=== PATIENT | female | born 1950 | race Caucasian/White ===

== ENCOUNTER 2020-05-01 05:37 | Outpatient (RCR) | payer MEDICARE ==
[~2020-05-01] VITALS: Ht 172.7 cm; Wt 64.1 kg
[2020-05-01] MEDS ORDERED: LOSA50TA63 PO (15:29)
== END 2020-05-01 15:31 | disposition home or self-care (01) ==
LOC: PREOP 05:37
PROVIDERS: ATTEND Surgery
DX: Z01.818 Encounter for other preprocedural examination (principal); Z12.11 Encounter for screening for malignant neoplasm of colon

== ENCOUNTER → 2020-05-04 | Outpatient (CLI) | payer MEDICARE ==
[~2020-05-04] MED LIST: LOSA50TA63 PO
== END ==
LOC: LAB FS 10:50
PROVIDERS: ATTEND Surgery
DX: Z01.812 Encounter for preprocedural laboratory examination (principal); Z12.11 Encounter for screening for malignant neoplasm of colon; Z20.822 Contact with and (suspected) exposure to COVID-19
CPT/HCPCS: 87635

== ENCOUNTER 2020-05-08 07:03 | Day surgery (SDC) | payer MEDICARE, OTHER ==
[2020-05-08] VITALS (7 sets, daily range): BP systolic 89–139; BP diastolic 52–85
[~2020-05-08] VITALS: Ht 173 cm; Wt 64.0 kg
[2020-05-08] MEDS ORDERED: PROPOFOL INJECTION 50 ML IV ONE (07:06)
[2020-05-08] MEDS ORDERED: MIDAZOLAM 2 MG/2 ML (VERSED) VIAL ONE (07:07)
[2020-05-08] MEDS ORDERED: LACTATED RINGERS 1,000 ML IV STA (07:12)
[2020-05-08] MEDS ORDERED: LACTATED RINGERS 1,000 ML IV ONE (07:13)
--- NOTE | 2020-05-08 08:21 | Progress Note-Pre Operative ---
Pre-Operative Progress Note H&P Reviewed The H&P was reviewed, patient examined and no changes noted. Time Seen by Provider: 08:17 Date H&P Reviewed: May 08, 2020 Time H&P Reviewed: 08:17 Pre-Operative Diagnosis: screening colonoscopy JHONATAN KNAPP DO May 08, 2020 08:21
--- NOTE | 2020-05-08 09:33 | Progress Note-Post Operative ---
Post-Operative Progess Note Surgeon (s)/Site Physician (s) Surgeon JHONATAN KNAPP DO Site Physician: CURRY Longoria Pre-Operative Diagnosis screening colonoscopy Post-Operative Diagnosis Polyps Diverticula int hemorrhoids Procedure & Operative Findings Date of Procedure 05/08/20 Procedure Performed/Findings Colonoscopy with snare polypectomy Anesthesia Type IV sedation by MANGLE CATCHER Estimated Blood Loss Estimated blood loss (mL): scant Specimens/Packing Specimens Removed descending colon polyp x1 rectal polyp x1 JHONATAN KNAPP DO May 08, 2020 09:33
--- NOTE | 2020-05-08 09:34 | Endoscopy Discharge Instruct ---
Endo Procedure/Findings Findings 1.: Polyp 2.: Diverticulosis 3.: Internal Hemorrhoids Discharge Instructions - Activity: You might feel a little sleepy until tomorrow. This is due to the medicine you received to relax you. Until tomorrow, you should: NOT drive a car, operate machinery or power tools. NOT drink any alcoholic beverages. NOT make any important decisions or sign importortant papers. Do not return to work until tomorrow, unless otherwise instructed. Resume previous activities tomorrow. Diet: Start by taking liquids. If you tolerate liquids, advance to solid food. 1.: Colonscopy in 5 years Notify Physician - If you experience excessive bleeding, unusual abdominal pain, fever, or chest pain, contact your doctor immediately. JHONATAN KNAPP DO May 08, 2020 09:34
--- NOTE | 2020-05-08 11:55 | Anesthesia-General Post-Op ---
MAC Patient Condition Mental Status/LOC: Same as Preop Cardiovascular: Satisfactory Nausea/Vomiting: Absent Respiratory: Satisfactory Pain: Controlled Complications: Absent Post Op Complications Complications None Follow Up Care/Instructions Patient Instructions None needed. Anesthesiology Discharge Order Discharge Order Patient is doing well, no complaints, stable vital signs, no apparent adverse anesthesia problems. No complications reported per nursing. ELLEN MORRIS CRNA May 08, 2020 11:55
--- NOTE | 2020-05-08 23:41 | OPERATIVE REPORT ---
DATE OF SERVICE: 05/08/2020 PREOPERATIVE DIAGNOSIS: Screening colonoscopy. POSTOPERATIVE DIAGNOSES: Colon polyps, diverticula, and internal hemorrhoids. PROCEDURE: Colonoscopy with snare polypectomy. SURGEON: Willie King DO. FIRST ASSISTANTS: ANNE-MARIE Longoria. ANESTHESIA: IV sedation by the TIMBER MANAGEMENT ASSISTANT. SPECIMEN: Polyp from the descending colon and one from the rectum. BLOOD LOSS: Scant. FLUIDS: Per anesthesia. POSTOPERATIVE CONDITION: Stable. INDICATION FOR PROCEDURE: The patient is a 69-year-old female, who has not had a colonoscopy in at least over 10 years and needed a screening. FINDINGS: The patient had 2 polyps, a small one in the descending colon and a larger one in the rectum. She also had some small diverticula and some internal hemorrhoids. PROCEDURE NOTE: After informed consent was obtained, the patient was brought to the endoscopy suite, placed in bed in left lateral decubitus position. She was administered IV sedation by the TIMBER MANAGEMENT ASSISTANT who then monitored her vitals the entire time, heart rate, blood pressure and pulse ox, inserted the scope. On the way in, noted a large polyp in the rectum, elected to push past this, but in the descending colon, saw a small polyp. I did do a snare polypectomy of this, suctioned this up, continued forward, saw some diverticula, took a picture. Pushed all the way into about 150 cm, able to get to the cecum, took a picture of appendiceal orifice, noted the ileocecal valve and then slowly withdrew the scope, insufflating to look circumferentially at the small, looking at the cecum and then up the ascending colon to the hepatic flexure, then down the transverse colon, the splenic flexure into the descending colon down in sigmoid and finally into the rectum. In the rectum, again saw this large polyp, did another snare polypectomy, able to suction this up and then down into the rectal vault. Retroflexed in the rectal vault, saw some internal hemorrhoids, took a picture and then removed the scope. The patient tolerated the procedure. She was recovered in endoscopy suite. Job ID: [id number] DocumentID: [id number] Dictated Date: 05/08/2020 19:58:07 Blunger Loader Date: 05/08/2020 23:40:42 Dictated By: WILLIE KING DO
== END 2020-05-08 09:50 | disposition home or self-care (01) ==
LOC: ENDO 07:03
PROVIDERS: ATTEND Surgery
DX: Z12.11 Encounter for screening for malignant neoplasm of colon (principal); D12.8 Benign neoplasm of rectum; K64.8 Other hemorrhoids; K57.30 Diverticulosis of large intestine without perforation or abscess without bleeding; K59.09 Other constipation; I10 Essential (primary) hypertension; Z79.899 Other long term (current) drug therapy; Z88.0 Allergy status to penicillin
CPT/HCPCS: 88305

== ENCOUNTER → 2021-04-06 | Outpatient (CLI) | payer SELFPAY ==
--- NOTE | 2021-04-06 11:20 | Diagnostic Imaging Report ---
INDICATION: Hyperlipidemia. Please see separate calcium scoring report. The portion of the right and left lung that are visualized appear normal. No nodules or infiltrates are demonstrated. No evidence of pericardial effusion. No mediastinal or hilar adenopathy is present in the region scanned. The sternum portion of the ribs visualized appears normal. IMPRESSION: Negative limited CT chest for calcium scoring. Dictated by: Dictated on workstation # [id number]
== END ==
LOC: RAD FS 09:02
PROVIDERS: ATTEND Family Medicine
DX: E78.2 Mixed hyperlipidemia (principal)
CPT/HCPCS: 75571